=== PATIENT | male | born 1980 | race Caucasian/White ===

== ENCOUNTER 2019-05-16 11:57 | Emergency (ER) | payer OTHER ==
--- NOTE | 2019-05-16 13:48 | MRI ---
MRI OF LUMBAR SPINE PERFORMED WITHOUT CONTRAST ENHANCEMENT: HISTORY: Back pain radiating into right leg. COMPARISON: A 06/12/2013 study. FINDINGS: The vertebral bodies are normal in height. There is moderate disk narrowing at L3-4 and more severe disk narrowing at L4-5. There is no significant periaortic adenopathy and the visualized portions of the kidneys appear unremarkable. T12-L1: Unremarkable. L1-2: Unremarkable. L2-3: Degenerative facet changes without canal or foraminal stenosis. L3-4: Degenerative facet changes without significant canal or foraminal narrowing. L4-5: There is a disk bulge present at this level, but there is no significant foraminal narrowing s een. This actually appears less prominent than it did on the previous exam. L5-S1: there is a large right paracentral disk protrusion also with an extruded disk component. Thi s is causing significant flattening along the right side of the thecal sac with the thecal sac displa nikki to the left. There is borderline left foraminal narrowing incidentally seen. IMPRESSION: 1. Left paracentral and lateral disk protrusion at L4-5 associated with a mild degree of canal narro wing. 2. Large right paracentral disk herniation and extrusion at the L5-S1 level. This is causing promin ent impression on the thecal sac at this level displacing the sac to the left. This is definite wor sening as compared to the previous study. POS: [facility]
[2019-05-16 13:52] LABS: #Basophils 0.1 thou/uL (0.0-0.2); #Lymphocytes 1.1 thou/uL (1.20-3.40); #Monocytes 0.7 thou/uL (0.11-0.59); #Neutrophils 5.3 thou/uL (1.40-6.50); %Basophils 0.9 % (0.0-1.0); %Eosinophils 0.6 % (0.0-10.0); %Lymphocytes 15.7 % (21.0-51.0); %Neutrophils 72.9 % (42.0-75.0); Hemoglobin 15.5 g/dL (14.0-18.0); Mean Corpuscular HGB CONC 33.3 g/dL (32.0-36.0); Mean Corpuscular Hemoglobin 30.1 pg (27.0-31.0); Mean Corpuscular Volume 90.4 fL (78.0-98.0); Platelet Count 349 thou/uL (130-400); RBC Distribution Width 11.6 % (11.5-14.5); Red Blood Cell (RBC) Count 5.15 mill/uL (4.70-6.10); White Blood Cell (WBC) Count 7.2 thou/uL (4.8-10.8)
[2019-05-16 14:13] LABS: ALT (SGPT) 21 U/L (8-55); AST (SGOT) 18 U/L (5-34); Alkaline Phosphatase 52 U/L (40-110); Anion Gap 10 mmol/L (10-20); BUN (Urea Nitrogen) 9 mg/dL (8.9-20.6); Bilirubin, Total 1.2 mg/dL (0.2-1.2); Calc. Creatinine Clearance 0 mL/min (70-130); Calcium 9.1 mg/dL (7.8-10.44); Carbon Dioxide 28 mmol/L (22-29); Chloride 104 mmol/L (98-107); Estimated GFR-MDRD Greater than 90; Globulin 2.9 g/dL (2.4-3.5); Glucose 87 mg/dL (70-105); Protein, Total 6.9 g/dL (6.0-8.3); Sodium 138 mmol/L (136-145)
[2019-05-16] MEDS ORDERED: Dexamethasone 4 MG TAB ONE (14:47)
[2019-05-16] MEDS ORDERED: Ketorolac Tromethamine 60 MG/2 ML VIAL ONE (14:47)
[2019-05-16 15:18] LABS: Bilirubin Negative (Negative); Blood, Urine Negative (Negative); Clarity Clear (Clear); Glucose, Urine (Dipstick) Normal (Negative); Leukocyte Negative Leu/uL (Negative); Nitrite Negative (Negative); Protein, Urine (Dipstick) Negative (Neg-Trace); Urobilinogen Normal mg/dL (Less than 2)
--- NOTE | 2019-05-17 02:39 | CON ---
DATE OF CONSULTATION: 05/16/2019 REASON FOR CONSULTATION: Bulging disk noted on MRI causing patient to ambulate with a limp. CHIEF COMPLAINT: Back pain. HISTORY OF PRESENT ILLNESS: Juan Luis is a 38-year-old male, presents to the ED with 5 days of lower back pain with right leg weakness. States that the back pain radiates down his buttocks, hip, right leg, and 3 through 5 toes on his right foot with numbness and tingling. The patient states that his pain is sharp in nature. There was a gradual onset of symptoms 5 days ago. Symptoms are worsening and he believes it is because he has been coughing and sneezing lately. REVIEW OF SYSTEMS: CONSTITUTIONAL: Denies fever, chills, weight loss, night sweats, or loss of energy. HEENT: Denies double vision, blurred vision, or difficulty swallowing. CARDIOVASCULAR/RESPIRATORY: Denies chest pain, shortness of breath, or cough. GI: Denies indigestion, vomiting, or black stool. : Denies burning urination, blood in urine, or incontinence. MUSCULOSKELETAL: Right leg pain, lower back pain. NEUROLOGIC: Right leg numbness, paresthesias, weakness. PSYCHIATRIC: Denies anxiety, hallucinations, personality changes, or crying. PAST MEDICAL HISTORY: None. PAST SURGICAL HISTORY: L3-4 laminectomy. SOCIAL HISTORY: The patient drinks socially. The patient denies drug use. The patient has no smoking history. ALLERGIES: NO KNOWN DRUG ALLERGIES. CURRENT MEDICATIONS: 1. Tizanidine 4 mg. 2. [place] 10/325 mg. PHYSICAL EXAMINATION: VITAL SIGNS: Blood pressure 130/70, pulse 70, respiratory rate 18, weight 118 kg, height 6 feet 5 inches. HEENT: Pupils are equal. NECK: Normal. Soft and supple. No masses are noted. ROM is intact and nonpainful. NEUROLOGIC: Awake, alert, and oriented x3. Memory, attention, fund of knowledge, and language are normal. Cranial nerves normal. Cranial nerves 2 through 12 grossly intact. EXTREMITIES: Lower extremities 5/5 bilateral strength to the knee flexion, knee extension, dorsiflexion, plantar flexion, EHL. There was a right radiculopathy. Deep tendon reflexes were normal bilaterally. Sensory, light touch intact. Gait, ambulating with a limp. BACK: Lower back, painful ROM, tender. DIAGNOSTIC STUDIES: MRI of L4-S1 medium-sized disk herniation without significant foraminal narrowing. PLAN: Unilateral weakness could be managed without surgery. Offered injections , therapy, medication, and to follow up in 1 to 2 weeks in the office for nonemergent surgery. Job ID: [id number] [facility]
== END 2019-05-16 15:10 | disposition home or self-care (01) ==
LOC: ERS 11:57
DX: M51.27 Other intervertebral disc displacement, lumbosacral region (principal); R53.1 Weakness; Z79.899 Other long term (current) drug therapy
CPT/HCPCS: 36415; 72148; 80053; 81003; 85025; 96372; J1885; J8540